=== PATIENT | male | born 1950 | race Caucasian/White ===

== ENCOUNTER 2020-10-23 20:39 | Observation (INO) | payer MEDICARE ==
[~2020-10-23] VITALS: Ht 177.8 cm; Wt 89.4 kg
[2020-10-23 21:01] LABS: HEMOGLOBIN 15.2 gm/dl (14.0-17.5); RED BLOOD COUNT 4.75 M/UL (4.20-5.50); WHITE BLOOD COUNT 11.2 K/UL (4.5-11.0)
[2020-10-23 21:15] LABS: BUN/CREATININE RATIO 15 (0-10)
[2020-10-24] MEDS ORDERED: PRAVASTATIN SOD40 MG PO (00:38)
[2020-10-24] MEDS ORDERED: COZAAR50 MG PO (00:38)
[2020-10-24] MEDS ORDERED: FLOMAX 0.4 MG0.4 MG PO (00:39)
[2020-10-24] MEDS ORDERED: ASPIRIN CHEWABL81 MG PO (00:39)
== END 2020-10-24 10:12 ==
LOC: ER1 20:39 → CDU 22:11 → M/S 10-24 00:15
PROVIDERS: Preventive Medicine Occupational Medicine; ADMIT Surgery
DX: S09.8XXA Other specified injuries of head, initial encounter (principal); M25.512 Pain in left shoulder; I11.9 Hypertensive heart disease without heart failure; E78.5 Hyperlipidemia, unspecified; Z20.822 Contact with and (suspected) exposure to COVID-19; V49.40XA Driver injured in collision with unspecified motor vehicles in traffic accident, initial encounter; Z23 Encounter for immunization
CPT/HCPCS: 36415; 70450; 71045; 71260; 72125; 72128; 72131; 72170; 80053; 80307; 81001; 82009; 82140; 82550; 82553; 83690; 83874; 83880; 84484; 85025; 85652; 86140; 86850; 86900; 86901; 87086; 87635; 90686; 99285; G0008; G0378; G0480; Q9967